=== PATIENT | male | born 1965 | race Caucasian/White ===

== ENCOUNTER 2024-06-20 23:48 | Inpatient (IN) | payer OTHER, SELFPAY ==
[2024-06-20 20:08] VITALS: BMI 34.6
[2024-06-20 20:10] VITALS: BP 150/125
[2024-06-20 20:28] LABS: % Basophils 0.6 % (0-2); % Eosinophils 0.4 % (0-6); % Immature Granulocytes 0.8 % (0-0.5); % Lymphocytes 11.2 % (20.5-51.1); % Monocytes 11.2 % (1.7-9.3); % Neutrophils 75.8 % (42.2-75.2); Absolute Lymphocytes 0.6 10^3/uL (1.2-3.4); Absolute Monocytes 0.6 10^3/uL (0.1-0.6); Hematocrit 44.9 % (39.0-52.0); Hemoglobin 15.4 g/dL (13.0-18.0); Mean Corp Hgb Conc. 34.3 g/dL (33.0-37.0); Mean Corpuscular Hgb 31.4 pg (27.0-31.0); Mean Corpuscular Volume 91.4 fL (80.0-94.0); Mean Platelet Volume 9.1 fL (7.4-10.4); Nucleated Red Blood Cells % 0 % (-); Platelet Count 185 10^3/uL (130-400); Red Blood Cell Count 4.91 10^6/uL (4.70-6.10); Red Cell Dist. Width 12.9 % (11.5-14.5); White Blood Cell Count 5.2 10^3/uL (4.8-10.8)
[2024-06-20 20:30] VITALS: BP 144/50
--- NOTE | 2024-06-20 20:30 | ED.GENMED ---
History of Present Illness
General
Chief Complaint: Breathing Problem
Time Seen by Provider: 06/20/24 20:12
History of Present Illness
History of Present Illness:
58-year-old male presents the emergency department for evaluation of coughing and difficulty breathing for the past 3 to 4 days. Cough is productive of clear mucus. He reports tactile fevers and chills as well. Reports increasing chest discomfort
secondary to coughing. Denies any leg swelling or weight gain. Admits that he continues to smoke, has been using his albuterol rescue inhaler several times each day without significant relief. Denies known history of CHF. [facility] at which time he had an echocardiogram showing an EF of 55% and mild LVH.
During that admission patient also had a CT scan of his chest which showed a questionable mass in the right upper lobe suspicious for a spiculated mass; he states he followed up on this by [place]' and was informed 'it was
all clear'.
Past History
Past History
ED Past Medical History: HTN, NIDDM, Other (gout), Other (anal and rectal abscesses) and Other (PE); Negative CAD
ED Past Surgical History: Orthopedic (hip replacement) and Tonsilectomy; Negative Cardiac
Patient has exhibited threatening behavior?: No
Social History
Tobacco: Smoker
Alcohol: Occasional
Drug: None
Personal: Single
Living: other (significant other)
Employment: Employed
Family History
Family History: Negative Early CAD
Review of Systems
Review of Systems
Allergies reviewed?: Yes
All Other Systems: ROS reviewed and negative except as documented in HPI and ROS
Phy Exam
Physical Exam
Physical Exam:
GEN: Chronically ill-appearing, tachypneic, conversational dyspnea
Eyes: PERRLA, EOMs intact, no scleral icterus
HENT: NCAT, oral mucosa moist, no JVD
Lungs: Tachypnea with conversational dyspnea, expiratory wheezes and rhonchi heard throughout all lung osullivan
Cardiac: RRR, no M/R/G, no peripheral edema. Radial pulses 2+ bilat
Neuro: AO x 3
MSK: No gross deformity or ecchymosis. No edema.
Skin: No rashes, petechiae. Normal color, no pallor or jaundice.
Psych: Calm, cooperative, proper hygiene
Scores
Heart Failure Risk
Heart Failure Risk Score: Not Applicable
Course
Orders/Labs/Results
Orders:
Orders
06/20/24 20:12
Electrocardiogram (*1) Urgent
Reason for Study: Other
Other Reason for Exam: Respiratory Distress
EKG- Treatment ONCE
CR Chest - 2 Views Urgent
Comment:
Reason For Exam: respiratory distress
06/20/24 20:14
COVID-19 Antigen Urgent
Source: Nasal Swab
Complete Blood Count/With Diff Urgent
Comprehensive Metabolic Panel Urgent
Serum Osmolality Urgent
Comment: ADDON
Troponin I Urgent
Influenza A+B Rapid Molecular Urgent
NANCY Source: Nasal Swab
Specimen Description:
06/20/24 20:27
Ipratropium/Albuterol Sulfate [Duoneb] 3 ml INH R NOW ONE
06/20/24 20:34
Dexamethasone Sod Phosphate [Decadron] 10 mg IV NOW STA
06/20/24 20:49
Add On- LAB Urgent
Tests Added?: serum osmolality
Osmolality, Random Urine Urgent
Urinalysis Reflex To Culture Urgent
Urine Sodium Urgent
06/20/24 21:09
Oseltamivir Phosphate [Tamiflu] 75 mg PO NOW STA
Abnormal Lab Results
06/20/24
20:14
MCH 31.4 H pg
(27.0-31.0)
Absolute Lymphs (auto) 0.6 L 10^3/uL
(1.2-3.4)
Immature Gran % 0.8 H %
(0-0.5)
Neutrophils % 75.8 H %
(42.2-75.2)
Lymphocytes % 11.2 L %
(20.5-51.1)
Monocytes % 11.2 H %
(1.7-9.3)
Sodium 122 L mmol/L
(135-145)
Chloride 93 L mmol/L
(98-107)
Carbon Dioxide 17 L mmol/L
(22-30)
Glucose 156 H mg/dl
(70-99)
Serum Osmolality 265 L mOsm/kg
(275-300)
Calcium 8.3 L mg/dl
(8.4-10.2)
Troponin I 0.066 H* ng/ml
06/20/24 20:14
06/20/24 20:14
Vital Signs
Initial and Last Documented VS:
Initial Vital Signs
Temp Pulse Resp BP Pulse Ox
99.1 F 116 26 150/125 94
06/20/24 20:10 06/20/24 20:10 06/20/24 20:10 06/20/24 20:10 06/20/24 20:10
Last Documented Vital Signs
Temp Pulse Resp BP Pulse Ox
99.1 F 112 17 144/50 91
06/20/24 20:10 06/20/24 20:30 06/20/24 20:30 06/20/24 20:30 06/20/24 20:30
MDM/Problems Addressed
MDM/Problems Addressed:
58-year-old male presents via EMS due to cough and shortness of breath. He reports positive flu exposure at home. He is known to be flu positive with oxygen saturations in the low 90s and coarse wheezing throughout all lung osullivan. He did improve
from a respiratory status after a DuoNeb was given, IV steroids initiated due to likely concomitant COPD exacerbation. Although he is likely outside the window for benefit given initial dose antivirals given that he will be hospitalized. Chest
x-ray without clear evidence for pneumonia. Patient also noted to be hyponatremic at 122. Of note he drinks beer routinely but states he has not consumed any beer in the past 2 days, also consumes '6-7 bottles of water' daily. Appears euvolemic
on exam, do not suspect acute CHF, may benefit from fluid restriction secondary to beer Potomania/polydipsia
Comment
Comment:
EKG independently interpreted by me is markedly limited secondary to patient motion artifact, slightly tachycardic, appears to be sinus rhythm, unable to adequately discern ST changes, note multiple attempts at EKG were made however patient
ultimately refused further attempts due to discomfort
*Critical Care Note
Total Time (30-74mins, 75-104mins- exclusive of procedures): Not Applicable
ED Attending Note
-
Portions of this chart may have been created with voice recognition software.� Occasional wrong word or��sound alike� substitutions may have occurred due to the inherent limitations of voice recognition software.
Discharge Plan
Departure
Patient Disposition: Admit
Date of Disposition: 06/20/24
Time of Disposition: 21:07
Admit to: Med/Surg
Presentation/result/management discussed w/ accepting MD/DO: Hospitalist
Discharge Problem:
Influenza, Acute exacerbation of chronic obstructive pulmonary disease (COPD), Acute hyponatremia
Prescriptions:
No Action
allopurinol 100 MG tablet
100 mg PO BID
metformin 1,000 MG tablet
1,000 mg PO BID@0800,1700
lisinopril 40 MG tablet
40 mg PO DAILY
aspirin 81 MG tablet,delayed release (DR/EC)
81 mg PO DAILY
nicotine 21 mg/24 hr Patch 24 Hour
21 mg transdermal DAILY Qty: 14 3RF
guaifenesin [Mucinex] 600 mg Tablet Extended Release 12hr
600 mg PO Q12 Qty: 60 0RF
amoxicillin-pot clavulanate 875-125 mg tablet
1 tab PO Q12H Qty: 14 0RF
prednisone 10 mg tablet
10 mg PO DIRECTED Qty: 10 0RF
Rx Instructions:
2 tabs qAM x 3 days, then 1 tab daily for next 4 days
Referrals:
Opal Valerio, [Family Provider] -
Interventions
Interventions:
*Risk Screen - Suicide Last Done: 06/20/24 20:10
*General Assessment Last Done: 06/20/24 20:10
*Neglect/Abuse Screening Last Done: 06/20/24 20:10
ED- Fall Risk Assessment Last Done: 06/20/24 20:10
ED- Cardiac Assessment Last Done: 06/20/24 20:24
ED- Pulmonary Assessment Last Done: 06/20/24 20:10
Discharge Date and Time
Print Language: EGYPTIAN
[2024-06-20] MEDS: DUONEB 3 ML INH (20:33)
[2024-06-20] MEDS: DECADRON 10 MG IV (20:41)
[2024-06-20 20:46] LABS: ALT (SGPT) 45 U/L (0-50); AST (SGOT) 59 U/L (17-59); Alkaline Phosphatase 86 U/L (38-126); Blood Urea Nitrogen 16 mg/dl (9-20); Calcium 8.3 mg/dl (8.4-10.2); Carbon Dioxide 17 mmol/L (22-30); Chloride 93 mmol/L (98-107); Estimated Creatinine Clearance 102 ml/min; Glucose 156 mg/dl (70-99); Potassium 4.4 mmol/L (3.5-5.1); Sodium 122 mmol/L (135-145); Total Bilirubin 0.9 mg/dl (0.2-1.3); Total Protein 6.7 g/dl (6.3-8.2); eGFR > 60.00
[2024-06-20 20:49] LABS: COVID-19 Antigen Negative (Negative); Troponin I 0.066 ng/ml
[2024-06-20 20:58] VITALS: BP 151/67
[2024-06-20 21:00] VITALS: BP 140/72
[2024-06-20 21:13] LABS: Osmolality Serum 265 mOsm/kg (275-300)
[2024-06-20 22:00] VITALS: BP 163/107
[2024-06-20] MEDS: TAMIFLU 75 MG PO (22:11)
[2024-06-20 22:30] VITALS: BP 149/92
--- NOTE | 2024-06-20 23:13 | HPS.HSE ---
Family Physician
-
Family Physician: Opal Valerio
Chief Complaint
-
Cough / SOB
History of Present Illness
Patient is a 58y M with PMH significant for hypertension, DM-II and COPD who presents to ED complaining of cough and SOB x 3 days. Patient notes that his mother was recently admitted here for influenza. Patient did not receive his seasonal
influenza vaccination. Patient notes that his symptoms have gradually increased over the past three days. This evening he became more SOB and presented to the ED for further evaluation.
Patient denies any recent weight gain, edema, abdominal distention, etc.
He states that he typically drinks 3 cups of coffee and 6 bottle of water every day - more in the summer months.
Medical History
Past Medical History
Past Medical History: Reports Other
Additional Past Medical History:
Hypertension
DM-II
COPD
Obesity
Gout
History of DVT / PE
Past Surgical History: Reports Other
Additional Past Surgical History:
T&A
Left MIKKI
Social History
Tobacco: Smoker (Current every day smoker. > 40 pack years total use.)
Alcohol: Occasional
Drug: None
Family History
Family History: Not pertinent
Allergies / Home Medications
Allergies reflects when Allergies were last updated in [employer].
Home Medications with original date entered in [employer]
Allergy/Medication List:
Allergies
Allergy/AdvReac Type Severity Reaction Status Date / Time
Tetanus Vaccines and Toxoid Allergy Swelling Verified 06/20/24 20:16
[Tetanus Vaccines & Toxoid]
Home Medications
allopurinol 100 mg tablet 100 mg PO BID Gout 06/24/15
lisinopril 40 mg tablet 40 mg PO DAILY Blood pressure 06/24/15
metformin 1,000 mg tablet 1,000 mg PO BID@0800,1700 Diabetes 06/24/15
aspirin 81 mg tablet,delayed release 81 mg PO DAILY Blood clot prevention/tx 05/31/22
acetaminophen 500 mg tablet (Tylenol Extra Strength) 1,000 mg PO Q6HPRN PRN mild pain/fever 06/20/24
albuterol sulfate 90 mcg/actuation aerosol inhaler 2 puff inhalation R Q6HPRN PRN sob 06/20/24
Review of Systems
-
History Source: Patient
A 12 point ROS was completed and negative except as noted: Yes
Constitutional: Reports Fever, Fatigue and Chills
EENT: Denies Sore Throat
Respiratory: Reports Cough and Trouble Breathing
Cardiac: Denies Chest Pain or Palpitations
Abdomen/GI: Denies Abdominal Pain, Nausea, Vomiting or Diarrhea
: Denies Dysuria, Frequency or Flank Pain
Musculoskeletal: Reports Muscle Pain; Denies Joint Pain or Edema
Neurological: Reports Headache; Denies Dizzy
Psych: Denies Depression or Anxiety
Physical Exam
Vital Signs
Vital Signs
Temp Pulse Resp BP Pulse Ox
99.1 F 82 21 149/92 98
06/20/24 20:10 06/20/24 23:00 06/20/24 22:45 06/20/24 22:30 06/20/24 22:00
Physical Exam
General: Other (58y M in no acute distress.)
HEENT: Moist mucous membranes, PERRLA and Other (Thick neck.)
Respiratory: Other (Few scattered rales. No wheeze / rhonchi.)
Cardiac: S1/S2 and Regular Rhythm; No Murmur
GI: Soft, Non Tender, Non Distended, Normal Bowel Sounds and Other (Obese / protuberant.)
Musculoskeletal: No Clubbing, No Cyanosis and No Edema
Neuro: AO x 3
Laboratory Results
-
06/20/24 20:14
06/20/24 20:14
Laboratory Results
Total Bilirubin 0.9 mg/dl (0.2-1.3) 02/26/25 20:14
AST 59 U/L (17-59) 06/20/24 20:14
ALT 45 U/L (0-50) 06/20/24 20:14
Alkaline Phosphatase 86 U/L (38-126) 06/20/24 20:14
Troponin I 0.066 ng/ml H* 06/20/24 20:14
Impression/Plan
-
A/P: Patient is a 58y M with PMH significant for hypertension, DM-II and COPD who presents to ED complaining of cough and SOB.
Influenza A
Acute Hypoxemic Respiratory Insufficiency secondary to the above
- Admit for further evaluation and treatment.
- Mildly hypoxemic here to 90% on room air.
- Tamiflu BID.
- Supportive care with O2, albuterol, etc.
- Follow proper precautions.
- Follow for clinical improvement.
Acute on Chronic Hyponatremia
- Suspect this is primarily due to excess water intake +/- ADH excess due to acute illness.
- Patient admits to significant daily H2O intake.
- Does not appear volume overloaded on exam.
- Fluid restriction
- Follow-up urine studies.
- Follow for improvement in Na.
- Consider Nephrology evaluation if no significant improvement.
Non-Ischemic Myocardial Injury
- Troponin elevation in the absence of chest pain, etc.
- Likely secondary to acute illness - has had similar elevation in the past secondary to pneumonia / resp complaints.
- Follow to [facility].
- Monitor for any chest pain or other new symptoms.
COPD without Acute Exacerbation
- Ongoing smoker. No wheezing on exam.
- Treat influenza as noted above.
- Nebs ATC and PRN.
- Encourage smoking cessation.
Benign Hypertension
- BP elevated on initial arrival - likely due to distress / dyspnea.
- Continue usual home medication and adjust as needed.
DM-II
- Stable. Hold PO medications acutely.
- Cover with SSI as needed.
- Update A1C.
Obesity due to excess calories
- Affects all aspects of care.
- Encourage health diet and increased exercise with goal of weight loss.
DVT Prophylaxis
History of DVT / PE
- Lovenox
Code Status: Full
[2024-06-21 00:22] LABS: Glucose - Point of Care 170 mg/dl (70-99)
[2024-06-21 00:45] LABS: Urine Albumin 3+ (Neg - Trace); Urine Bilirubin Negative (Negative); Urine Character Clear (Clear); Urine Color Yellow; Urine Glucose Negative (Negative); Urine Ketone 1+ (Negative); Urine Leukocyte Negative (Negative); Urine Nitrite Negative (Negative); Urine Occult Blood 1+ (Negative); Urine Urobilinogen Negative (Neg - 1+)
[2024-06-21 00:54] LABS: Osmolality Urine 175 mOsm/kg (300-900)
[2024-06-21 01:00] LABS: Troponin I 0.074 ng/ml
[2024-06-21 01:06] LABS: Urine Sodium 10 mmol/L (30-90)
[2024-06-21 01:11] LABS: Urine Amorphous Seen; Urine Squamous Cell >30 /LPF (Few)
[2024-06-21 01:12] LABS: Urine Bacteria Moderate (Negative); Urine Red Blood Cell 0-2 /HPF (0-2)
[2024-06-21 06:55] LABS: Troponin I 0.069 ng/ml
--- NOTE | 2024-06-21 07:03 | W.PN.HOSP.TC ---
Today's Communication/Plan
-
Continue Tamiflu
PT/OT
Home oxygen assessment in the AM
Assessment / Plan
Assessment / Plan
Physical Exam
General: Not in acute distress
HEENT: Moist mucous membranes
Respiratory: Other (Few scattered rales. No wheeze / rhonchi.)
Cardiac: S1/S2 and Regular Rate and Rhythm
GI: Soft, Non Tender, Non Distended, Normal Bowel Sounds and Other (Obese / protuberant.)
Musculoskeletal: No Cyanosis and No Edema
Neuro: AAO x 3
Assessment/Plan
58y M with PMH significant for hypertension, DM-II and COPD who presented to the ED complaining of cough and SOB x 3 days. Patient noted that his mother was recently admitted here for influenza. Patient did not receive his seasonal influenza
vaccination. Patient noted that his symptoms have gradually increased over the previous three days. He became more SOB on the evening of 06/20/24 and presented to the ED for further evaluation. Patient denied any recent weight gain, edema, abdominal
distention, etc. He states that he typically drinks 3 cups of coffee and 6 bottle of water every day - more in the summer months.
Influenza A
- Mildly hypoxemic here to 90% on room air around the time of admission
- Tamiflu BID.
- Supportive care with O2, albuterol, etc.
- Follow proper precautions.
- Follow for clinical improvement.
Acute on Chronic Hyponatremia
- Now improving with PO Fluid Restriction
- Suspect this is primarily due to excess water intake +/- ADH excess due to acute illness
- Patient admits to significant daily H2O intake.
- Does not appear volume overloaded on exam.
- Continue PO Fluid restriction
- Consider Nephrology evaluation if no significant improvement.
Mild Hyperkalemia
- Hold home Lisinopril
- Replace with Amlodipine
Non-Ischemic Myocardial Injury
- Troponin elevation in the absence of chest pain, etc.
- Likely secondary to acute illness - has had similar elevation in the past secondary to pneumonia / resp complaints.
- Follow to [facility].
- Monitor for any chest pain or other new symptoms.
COPD without Acute Exacerbation
- Ongoing smoker. No wheezing on exam.
- Treat influenza as noted above.
- Nebs ATC and PRN.
- Encourage smoking cessation.
Benign Hypertension
- BP elevated on initial arrival - likely due to distress / dyspnea.
- Continue usual home medication and adjust as needed.
DM-II
- Stable. Hold PO medications acutely.
- Cover with SSI as needed.
- Updated A1C 5.9%
Obesity due to excess calories
- Affects all aspects of care.
- Encourage health diet and increased exercise with goal of weight loss.
DVT Prophylaxis
History of DVT / PE
- Lovenox
Code Status: Full Code
Anticipated Discharge: Within 24 hours
Subjective/Interval History
-
Date of Service: June 21, 2024
Patient was seen and examined. He reported feeling better, denied any new complaints.
Objective Data
-
Labs:
Laboratory Results
06/20/24 06/21/24
20:14 05:57
WBC 5.2 Pending
Hgb 15.4 Pending
Hct 44.9 Pending
Plt Count 185 Pending
Sodium 122 L Pending
Potassium 4.4 Pending
Chloride 93 L Pending
Carbon Dioxide 17 L Pending
BUN 16 Pending
Creatinine 0.9 Pending
Glucose 156 H Pending
Calcium 8.3 L Pending
Total Bilirubin 0.9
AST 59
ALT 45
Alkaline Phosphatase 86
Vital Signs:
Vital Signs
Temp Pulse Resp BP Pulse Ox
99.1 F 86 20 149/92 98
06/20/24 20:10 06/20/24 23:45 02/27/25 03:22 06/20/24 22:30 06/20/24 22:00
[2024-06-21 07:06] LABS: Blood Urea Nitrogen 16 mg/dl (9-20); Calcium 8.2 mg/dl (8.4-10.2); Carbon Dioxide 23 mmol/L (22-30); Chloride 96 mmol/L (98-107); Estimated Creatinine Clearance 114 ml/min; Glucose 199 mg/dl (70-99); Potassium 5.2 mmol/L (3.5-5.1); Sodium 129 mmol/L (135-145); eGFR > 60.00
[2024-06-21 07:11] LABS: Hematocrit 45.3 % (39.0-52.0); Hemoglobin 15.2 g/dL (13.0-18.0); Mean Corp Hgb Conc. 33.6 g/dL (33.0-37.0); Mean Corpuscular Hgb 31.2 pg (27.0-31.0); Mean Platelet Volume 9.3 fL (7.4-10.4); Platelet Count 183 10^3/uL (130-400); Red Blood Cell Count 4.87 10^6/uL (4.70-6.10); White Blood Cell Count 2.4 10^3/uL (4.8-10.8)
[2024-06-21] MEDS: DUONEB 3 ML INH ×4 (08:02→19:57)
[2024-06-21 08:14] VITALS: BP 157/92
[2024-06-21 08:17] VITALS: BP 157/92
[2024-06-21] MEDS: ZYLOPRIM 100 MG PO ×2 (08:24→20:30)
[2024-06-21] MEDS: TAMIFLU 75 MG PO ×2 (08:24→20:30)
[2024-06-21] MEDS: ASPIR LOW (ENTERIC COATED) 81 MG PO (08:24)
[2024-06-21] MEDS: ZESTRIL 40 MG PO (08:24)
[2024-06-21 09:57] LABS: Glucose - Point of Care 196 mg/dl (70-99)
[2024-06-21 10:03] LABS: Glycohemoglobin (HgbA1c) 5.9 % (4.0-5.6)
[2024-06-21] MEDS: NOVOLOG FLEXPEN-LOW RESISTANCE 1 UNITS SC ×3 (10:12→18:11)
[2024-06-21 11:11] VITALS: BP 145/90
[2024-06-21 11:52] LABS: Troponin I 0.057 ng/ml
[2024-06-21 13:21] LABS: Glucose - Point of Care 179 mg/dl (70-99)
[2024-06-21 15:01] VITALS: BMI 32.7
[2024-06-21 15:05] VITALS: BP 172/99
[2024-06-21 15:25] VITALS: BP 135/88
[2024-06-21 18:01] LABS: Glucose - Point of Care 175 mg/dl (70-99)
[2024-06-21] MEDS: LOVENOX 40 MG SC (18:11)
[2024-06-21 21:49] LABS: Glucose - Point of Care 152 mg/dl (70-99)
[2024-06-21 23:10] VITALS: BP 129/75
[2024-06-22 05:52] VITALS: BMI 32.4
[2024-06-22] MEDS: DUONEB 3 ML INH ×3 (06:18→16:02)
[2024-06-22 07:34] VITALS: BP 124/81
[2024-06-22 07:50] LABS: Glucose - Point of Care 144 mg/dl (70-99)
[2024-06-22 08:37] LABS: Hemoglobin 15.8 g/dL (13.0-18.0); Mean Corp Hgb Conc. 33.6 g/dL (33.0-37.0); Mean Corpuscular Volume 92.3 fL (80.0-94.0); Mean Platelet Volume 9.1 fL (7.4-10.4); Platelet Count 262 10^3/uL (130-400); Red Blood Cell Count 5.09 10^6/uL (4.70-6.10); Red Cell Dist. Width 13.1 % (11.5-14.5); White Blood Cell Count 4.3 10^3/uL (4.8-10.8)
[2024-06-22] MEDS: NORVASC 5 MG PO (08:46)
[2024-06-22] MEDS: ASPIR LOW (ENTERIC COATED) 81 MG PO (08:46)
[2024-06-22] MEDS: TAMIFLU 75 MG PO (08:46)
[2024-06-22] MEDS: ZYLOPRIM 100 MG PO (08:46)
[2024-06-22] MEDS: NOVOLOG FLEXPEN-LOW RESISTANCE SC ×2 (08:47→11:53)
[2024-06-22 09:01] LABS: Blood Urea Nitrogen 22 mg/dl (9-20); Calcium 8.8 mg/dl (8.4-10.2); Carbon Dioxide 23 mmol/L (22-30); Chloride 101 mmol/L (98-107); Estimated Creatinine Clearance 114 ml/min; Glucose 129 mg/dl (70-99); Magnesium 2.3 mg/dl (1.6-2.3); Potassium 4.3 mmol/L (3.5-5.1); Sodium 131 mmol/L (135-145); eGFR > 60.00
[2024-06-22 10:21] LABS: % Basophils 0.5 % (0-2); % Eosinophils 0.5 % (0-6); % Immature Granulocytes 0.9 % (0-0.5); % Lymphocytes 29.9 % (20.5-51.1); % Neutrophils 48.2 % (42.2-75.2); Absolute Lymphocytes 1.3 10^3/uL (1.2-3.4); Absolute Monocytes 0.9 10^3/uL (0.1-0.6); Absolute Neutrophils 2.1 10^3/uL (1.4-6.5); Nucleated Red Blood Cells % 0 % (-)
--- NOTE | 2024-06-22 11:19 | CM ---
Addendum entered by Harish Amaya 06/22/24 15:29:
Discharge order noted.
CM met with pt again. Pt is aware of the discharge, expressed his agreement and he stated his father is coming to take home around 5:00 p.m.
PT and OT evaluations noted - home PT/OT recommended. Pt is aware, expressed strong disagreement. 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 Pt stated 'I just was here for 3 days, not be able to walking
around and when I come back home I always outside of the house enjoying fresh air and I do not need anybody in my house for doing nothing'. CM explained the benefits of VN services and pt strongly rejected it.
D/C plan: home no needs. Father to transport.
Original Note:
CM following re: discharge planning.
Reviewed pt's chart, met with pt.
Pt is a 58 year old male, admitted with primary dx of Influenza A. Pt is on room air.
Pt reports he lives with parents in a 2SH, 1 step to enter, has supportive daughter. 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 pt stated he feels he might be discharged today and he will have a ride
home.
PCP: Opal Valerio
Pharmacy: [facility]
D/C plan: home with anticipated no needs. Family to transport.
[2024-06-22 11:30] VITALS: BP 145/92; PULSE 81; O2SAT 95
[2024-06-22 11:43] LABS: Glucose - Point of Care 147 mg/dl (70-99)
[2024-06-22 11:46] VITALS: BP 145/92; PULSE 81; O2SAT 95
--- NOTE | 2024-06-22 11:55 | PTOTSP ---
pt currently requires supervision, increased time to complete simple ADLs, functional transfers, ambulation. no acute OT needs identified at this time, will sign off.
--- NOTE | 2024-06-22 12:57 | PN.CDI ---
CDI
- -
CDI:
Physician Documentation Request
Admit Date: 06/20/24 23:48
Dear Doctor Belen,
Patient admitted with Influenza A.
On admission, HR> 90 and RR >20.
06/21 WBC 2.4
Please clarify which of the following most accurately describes the status of the patient's infection:
Viral sepsis, POA.
Influenza A only
Other
Sepsis
- Systemic manifestations of infection, with 2 or more SIRS criteria which include:
- Fever >100.4 degrees F or hypothermia < 96.8 degrees F
- Leukocytosis - WBC > 12,000 or leukopenia - WBC < 4,000 or > 10% bands
- Tachycardia > 90 beats per minute
- Tachypnea - RR > 20 breaths per minute or PaCO2 , 32mmHg
Source: Merck Manual 2013
- Indicate the known or suspected organism
- Indicate the known or suspected underlying infection, such as Influenza A
Localized Infection Only, Without Systemic Illness
- indicate the site/source, such as Influenza A
Other
Use of terms such as suspected, likely, concern for, or probable (associated with a specific diagnosis that is being evaluated, monitored, or treated as if it exists) are acceptable and can be coded in the inpatient setting, when documented at the
time of discharge.
Thank you,
Anju CELAYAN,RN,CCDS
CDI Specialist
Available via tiger text
Please use your independent medical judgment in providing your response.
--- NOTE | 2024-06-22 13:09 | W.PN.HOSP.TC ---
Today's Communication/Plan
-
Discharge today
Assessment / Plan
Assessment / Plan
Physical Exam
General: Not in acute distress
HEENT: Moist mucous membranes
Respiratory: Other (Few scattered rales. No wheeze / rhonchi.)
Cardiac: S1/S2 and Regular Rate and Rhythm
GI: Soft, Non Tender, Non Distended, Normal Bowel Sounds and Other (Obese / protuberant.)
Musculoskeletal: No Cyanosis and No Edema
Neuro: AAO x 3
Assessment/Plan
58y M with PMH significant for hypertension, DM-II and COPD who presented to the ED complaining of cough and SOB x 3 days. Patient noted that his mother was recently admitted here for influenza. Patient did not receive his seasonal influenza
vaccination. Patient noted that his symptoms have gradually increased over the previous three days. He became more SOB on the evening of 06/20/24 and presented to the ED for further evaluation. Patient denied any recent weight gain, edema, abdominal
distention, etc. He states that he typically drinks 3 cups of coffee and 6 bottle of water every day - more in the summer months.
Influenza A
Concern for Viral Sepsis, POA
- Mildly hypoxemic here to 90% on room air around the time of admission
- Tamiflu BID -- continue 7 more doses to complete 5 days of treatment
- Supportive care with O2, albuterol, etc.
- Follow proper precautions.
- Follow for clinical improvement.
Acute on Chronic Hyponatremia
- Now significantly improved with PO Fluid Restriction
- Suspect this is primarily due to excess water intake +/- ADH excess due to acute illness
- Patient admits to significant daily H2O intake.
- Does not appear volume overloaded on exam.
- Continue PO Fluid restriction 40 ounces daily and recheck BMP with outpatient PCP
- Consider Nephrology evaluation if no significant improvement.
Mild Hyperkalemia
- Hold home Lisinopril
- Replaced with Amlodipine
Non-Ischemic Myocardial Injury
- Troponin elevation in the absence of chest pain, etc.
- Likely secondary to acute illness - has had similar elevation in the past secondary to pneumonia / resp complaints.
- Follow to [facility].
- Monitor for any chest pain or other new symptoms.
COPD without Acute Exacerbation
- Ongoing smoker. No wheezing on exam.
- Treat influenza as noted above.
- Nebs ATC and PRN.
- Encourage smoking cessation.
Benign Hypertension
- BP elevated on initial arrival - likely due to distress / dyspnea.
- Continue usual home medication and adjust as needed.
DM-II
- Stable. Hold PO medications acutely.
- Cover with SSI as needed.
- Updated A1C 5.9%
Obesity due to excess calories
- Affects all aspects of care.
- Encourage health diet and increased exercise with goal of weight loss.
DVT Prophylaxis
History of DVT / PE
- Lovenox
Code Status: Full Code
More than 30 minutes spent in discharge including
Final examination of the patient
Summarizing hospital stay
Instructions for continuing care to all relevant caregivers
Preparation of discharge records, prescriptions, and referral forms
Total time spent (in minutes): 37
Anticipated Discharge: Today
Subjective/Interval History
-
Date of Service: June 22, 2024
Patient was seen and examined. He reported feeling fine, and he said he is okay with going home today.
Objective Data
-
Labs:
Laboratory Results
06/22/24
08:03
WBC 4.3 L
Hgb 15.8
Hct 47.0
Plt Count 262 D
Sodium 131 L
Potassium 4.3
Chloride 101
Carbon Dioxide 23
BUN 22 H
Creatinine 0.8
Glucose 129 H
Calcium 8.8
Vital Signs:
Vital Signs
Temp Pulse Resp BP Pulse Ox
98.2 F 86 18 124/81 95
06/22/24 07:34 06/22/24 07:34 06/22/24 07:34 06/22/24 07:34 06/22/24 07:34
I&O
06/21/24 06/22/24 06/23/24
06:59 06:59 06:59
Intake Total 480 / 480 600 / 600
Balance 480 / 480 600 / 600
[2024-06-22 15:12] VITALS: BP 136/73
--- NOTE | 2024-06-22 15:17 | W.DCSUMMARY ---
Discharge Summary
Discharge Data
Date of Admission: 06/20/24
Date of Discharge: 06/22/24
Total time spent discharging patient (in min): 37
-
Pending Results: No
Hospital Course
58 y/o male with past medical history significant for hypertension, DM-II and COPD who presented complaining of cough and shortness for 3 days prior to presentation. Patient was found to have Influenza A and started on Tamiflu. Patient also had
asymptomatic hyponatremia with sodium of 122, and this significantly improved with oral fluid restriction; he did admit he was drinking excessive amounts of water prior to arrival. Due to his mild hyperkalemia, his Lisinopril was stopped and
replaced with Amlodipine. Patient was doing better and stable for discharge with outpatient follow-up.
Discharge Plan
-
Patient Disposition: Home (Routine Discharge)
Discharge Diagnosis/Procedures: Influenza A
Acute on Chronic Hyponatremia
Mild Hyperkalemia
Non-Ischemic Myocardial Injury
COPD without Acute Exacerbation
Benign Hypertension
Type 2 Diabetes Mellitus
Obesity due to excess calories
Diet: Low Fat, Low Cholesterol, Low Sodium and Diabetic, Carb Controlled
Additional Diets: RESTRICT ORAL FLUIDS (NOT JUST WATER BUT ANY FLUIDS) TO A TOTAL OF NO MORE THAN 40 OUNCES DAILY
Activity: As tolerated
Blood Work: Check CBC, CMP and Magnesium with your primary care provider in 3 to 4 days.
Activity Restrictions/Additional Instructions:
RESTRICT ORAL FLUIDS (NOT JUST WATER BUT ANY FLUIDS) TO A TOTAL OF NO MORE THAN 40 OUNCES DAILY, AND SEE YOUR PCP ON TUESDAY, JUNE 25, 2024 TO HAVE YOUR LABWORK RECHECKED AND SEE WHETHER YOUR ORAL FLUID RESTRICTION CAN BE REMOVED (YOU NEED TO DISCUSS
THIS WITH YOUR PCP ON TUESDAY, JUNE 25, 2024) -- the fluid restriction is because of your hyponatremia
Referrals:
Opal Valerio, DO [Family Provider] - in less than 1 week
Additional Discharge Medication Instructions: Amlodipine and Oseltamivir are new medications.
Lisinopril has been stopped due to hyperkalemia.
Prescriptions:
New
amlodipine 5 mg Tablet
5 mg PO DAILY Qty: 30 1RF
oseltamivir 75 mg Capsule
75 mg PO BID Qty: 7 0RF
Continued
allopurinol 100 MG tablet
100 mg PO BID
metformin 1,000 MG tablet
1,000 mg PO BID@0800,1700
aspirin 81 MG tablet,delayed release (DR/EC)
81 mg PO DAILY
acetaminophen [Tylenol Extra Strength] 500 mg Tablet
1,000 mg PO Q6HPRN PRN (Reason: mild pain/fever)
albuterol sulfate 90 mcg/actuation Hfa Aerosol Inhaler
2 puff INHALATION R Q6HPRN PRN (Reason: sob)
Discontinued
lisinopril 40 MG tablet
40 mg PO DAILY
Discharge Orders:
Discharge Patient (As Directed); Ordered 06/22/24
Ordered By: Ortiz Glover
Discharge Date and Time
Discharge Date/Time: 06/22/24 17:01
Print Language: IRISH
== END 2024-06-22 17:01 | disposition home or self-care (01) | DRG 872 ==
LOC: 1 ACUTE 23:48
PROVIDERS: Emergency Medicine; Physician Assistant; ADMITTING PHYSICIAN Hospitalist; ATTENDING PHYSICIAN Hospitalist; EMERGENCY PHYSICIAN Emergency Medicine; FAMILY PHYSICIAN Family Medicine
DX: A41.89 Other specified sepsis (principal); E87.1 Hypo-osmolality and hyponatremia; I5A Non-ischemic myocardial injury (non-traumatic); J44.1 Chronic obstructive pulmonary disease with (acute) exacerbation; J10.1 Influenza due to other identified influenza virus with other respiratory manifestations; F17.200 Nicotine dependence, unspecified, uncomplicated; Z11.52 Encounter for screening for COVID-19; R09.02 Hypoxemia; R06.89 Other abnormalities of breathing; I10 Essential (primary) hypertension; E11.9 Type 2 diabetes mellitus without complications; E66.09 Other obesity due to excess calories; Z68.32 Body mass index [BMI] 32.0-32.9, adult; Z86.718 Personal history of other venous thrombosis and embolism; E87.5 Hyperkalemia
CPT/HCPCS: 71046; 80048; 80053; 81003; 81015; 82962; 83036; 83735; 83930; 83935; 84300; 84484; 85025; 85027; 87086; 87502; 87811; 93005; 94640; 96374; 97162; 97166; 99285; 99406

== ENCOUNTER → 2025-01-21 09:43 | Outpatient (REF) | payer OTHER, SELFPAY ==
[2025-01-21 11:17] LABS: ALT (SGPT) 23 U/L (0-50); AST (SGOT) 30 U/L (17-59); Albumin 4.4 g/dl (3.5-5.0); Alkaline Phosphatase 65 U/L (38-126); Blood Urea Nitrogen 12 mg/dl (9-20); Calcium 9.5 mg/dl (8.4-10.2); Carbon Dioxide 27 mmol/L (22-30); Chloride 100 mmol/L (98-107); Glucose 135 mg/dl (70-99); HDL Cholesterol 92 mg/dl; LDL Cholesterol, Calculated 63 mg/dl; Potassium 5.7 mmol/L (3.5-5.1); Sodium 134 mmol/L (135-145); Total Protein 7.2 g/dl (6.3-8.2); Very Low Density Lipoprotein 19 mg/dl (0-30); eGFR > 60.00
[2025-01-21 11:47] LABS: Glycohemoglobin (HgbA1c) 6.0 % (4.0-5.6)
== END ==
LOC: REG 09:43
PROVIDERS: ATTENDING PHYSICIAN Internal Medicine Endocrinology, Diabetes & Metabolism; FAMILY PHYSICIAN Family Medicine
DX: E11.9 Type 2 diabetes mellitus without complications (principal)
CPT/HCPCS: 36415; 80053; 80061; 82570; 83036; 84156